=== PATIENT | female | born 1975 | race Caucasian/White ===

== ENCOUNTER → 2019-06-03 | Outpatient (CLI) | payer OTHER ==
--- NOTE | 2019-06-03 17:20 | PCVCIMAG ---
APPROVED REPORT Study performed: 06/03/2019 14:42:57 EXAM: Comprehensive 2D, Doppler, and color-flow Echocardiogram Patient Location: Echo lab Status: routine BSA: 2.35 HR: 63 bpmBP: 136/78 mmHg Rhythm: NSR Other Information Study Quality: Adequate Indications Murmur 2D Dimensions IVSd: 14.44 (7-11mm)LVOT Diam: 21.75 (18-24mm) LVDd: 51.79 mm PWd: 14.15 (7-11mm)Ascending Ao: 31.58 (22-36mm) LVDs: 34.60 (25-40mm) Left Atrium: 50.06 (27-40mm) Aortic Root: 28.54 mm LV Single Plane 4CH: 63.63 % LV Single Plane 2CH: 71.33 % Biplane EF: 68.0 % Volumes Left Atrial Volume (Systole) Single Plane 4CH: 92.82 mLSingle Plane 2CH: 88.40 mL LA ESV Index: 63.00 mL/m2 Aortic Valve AoV Peak Genaro.: 1.95 m/s AO Peak Gr.: 15.19 mmHgLVOT Max P.34 mmHg LVOT Max V: 1.80 m/s ZEYAD Vmax: 3.44 cm2 Mitral Valve E/A Ratio: 2.2 MV Decel. Time: 259.74 ms MV E Max Genaro.: 1.01 m/s MV A Genaro.: 0.45 m/s IVRT: 93.43 ms Pulmonary Valve PV Peak Genaro.: 1.19 m/sPV Peak Gr.: 5.63 mmHg Pulmonary Vein P Vein S: 0.73 m/sP Vein A: 0.28 m/s P Vein D: 0.69 m/sP Vein A Dur.: 141.9 msec P Vein S/D Ratio: 1.06 Tricuspid Valve TR Peak Genaro.: 2.61 m/s TR Peak Gr.: 27.23 mmHg Left Ventricle The left ventricle is normal size. There is normal LV segmental wall motion. Mild concentric left ventricular hypertrophy. Left ventricular systolic function is normal. The left ventricular ejection fraction is within the normal range. LVEF is 65%. The left ventricular diastolic function is normal. Right Ventricle The right ventricle is normal size. The right ventricular systolic function is normal. Atria Left atrium is mildly dilated. The right atrium size is normal. Aortic Valve The aortic valve is probably trileaflet. Mild LVOT gradient present. LVOT rest genaro- 1.8 m/s and peak gradient 13 mmHg. LVOT w/ valsalva genaro- 2.0 m/s and peak gradient 15 mmHg. No aortic regurgitation is present. There is no aortic valvular stenosis. Mitral Valve The mitral valve is normal in structure. Trace mitral regurgitation. No evidence of mitral valve stenosis. Tricuspid Valve The tricuspid valve is normal in structure. Trace tricuspid regurgitation with PAP of 34 mmHg. Pulmonic Valve The pulmonary valve is normal in structure. Trace pulmonic regurgitation. Great Vessels The aortic root is normal in size. IVC is normal in size and collapses >50% with inspiration. Pericardium There is no pericardial effusion. There is no pleural effusion. <Conclusion> The left ventricle is normal size. Mild concentric left ventricular hypertrophy. LVEF is 65%. The left ventricular diastolic function is normal. The right ventricle is normal size. Left atrium is mildly dilated. The aortic valve is probably trileaflet. Mild LVOT gradient present. LVOT rest genaro- 1.8 m/s and peak gradient 13 mmHg. LVOT w/ valsalva genaro- 2.0 m/s and peak gradient 15 mmHg. Trace mitral regurgitation. Trace tricuspid regurgitation with PAP of 34 mmHg. The aortic root is normal in size. There is no pericardial effusion.
== END | disposition home or self-care (01) ==
LOC: PCVCIMAG 15:08
PROVIDERS: ATTEND Internal Medicine Cardiovascular Disease
DX: I11.9 Hypertensive heart disease without heart failure (principal); R01.1 Cardiac murmur, unspecified; E78.5 Hyperlipidemia, unspecified; Q24.8 Other specified congenital malformations of heart; E11.9 Type 2 diabetes mellitus without complications; E03.9 Hypothyroidism, unspecified; F17.210 Nicotine dependence, cigarettes, uncomplicated
CPT/HCPCS: 93306

== ENCOUNTER → 2019-07-10 | Outpatient (CLI) | payer OTHER ==
--- NOTE | 2019-07-10 18:20 | PCVCIMAG ---
APPROVED REPORT Patient Location: Echo lab Room #: Stress Nurse: Rosmery Bosch RN Treadmill Stress Test Indications- mild LVOT obstruction, LVH, murmur, assess for arrhythmia, HTN, HLP The patient exercised according to the STIVEN protocol for 7:21 mins; achieving a work level of 10.1 METS. The resting heart rate of 79 bpm debra to a maximum heart rate of 146 bpm. This value represent 81% of the maximal, age-predicted heart rate. The resting blood pressure of 130/88 mmHg, debra to a maximum blood pressure of 210/80 mmHg. The exercise test was stopped due to dyspnea and fatigue. Conclusion #1 patient stopped secondary fatigue and shortness of breath no production of chest pain or angina #2 no diagnostic EKG changes consistent with ischemia O significant ectopy. #3 good exercise tolerance is an appropriate hemodynamic response. Also capacity is well preserved. Impression negative treadmill stress test for ischemia or significant ectopy. This exhibits good functional capacity there is evidence of a mild left ventricular outflow tract obstruction which is not limiting exercise tolerance.
== END | disposition home or self-care (01) ==
LOC: PCVCIMAG 14:59
PROVIDERS: ATTEND Internal Medicine Cardiovascular Disease
DX: I10 Essential (primary) hypertension (principal); R01.1 Cardiac murmur, unspecified
CPT/HCPCS: 93017